=== PATIENT | female | born 1990 | race Caucasian/White ===

== ENCOUNTER 2018-10-06 23:07 | Emergency (ER) | payer SELFPAY ==
--- NOTE | 2018-10-06 23:50 | C.PDOC ---
History Of Present Illness 28 year old female , , 12 weeks presents to the ED c/o severe headache, neck pain that started today at 16:00 while at home watching TV. Patient reports her headache is frontal and occipital radiating into her neck. Patient states she had previous headaches in the past but this one feels worse. Patient's LMP was on 06/23/18. Patient denies fever, chills, nausea, vomit, CP, SOB, abdominal pain, vaginal bleeding, vaginal discharge, rash, weakness, numbness, injury, fall, trauma. Time Seen by Provider: 10/06/18 23:50 Chief Complaint (Nursing): Headache History Per: Patient, Family History/Exam Limitations: no limitations Onset/Duration Of Symptoms: Hrs (16:00) Current Symptoms Are (Timing): Still Present Quality: "Pain" Associated Symptoms: denies: Photophobia, Blurred Vision, Extremity Weakness Recent travel outside of the [place]: No Additional History Per: Patient Past Medical History Reviewed: Historical Data, Nursing Documentation, Vital Signs Vital Signs: Last Vital Signs Temp 98.5 F 10/06/18 23:33 Pulse 116 H 10/06/18 23:33 Resp 22 10/06/18 23:33 BP 134/87 10/06/18 23:33 Pulse Ox 96 10/06/18 23:33 - Medical History PMH: No Chronic Diseases Surgical History: No Surg Hx Family History: States: Unknown Family Hx - Social History Hx Tobacco Use: No Hx Alcohol Use: No Hx Substance Use: No - Immunization History Hx Tetanus Toxoid Vaccination: No Hx Influenza Vaccination: No Hx Pneumococcal Vaccination: No Review Of Systems Constitutional: Negative for: Fever, Chills Eyes: Negative for: Vision Change Cardiovascular: Negative for: Chest Pain, Palpitations Respiratory: Negative for: Cough, Shortness of Breath Gastrointestinal: Negative for: Nausea, Vomiting, Abdominal Pain Musculoskeletal: Positive for: Neck Pain Skin: Negative for: Rash Neurological: Positive for: Headache. Negative for: Weakness, Numbness Physical Exam - Physical Exam Appears: Non-toxic, In Acute Distress Skin: Normal Color, Warm, Dry Head: Atraumatic, Normacephalic Eye(s): bilateral: Normal Inspection, PERRL, EOMI Oral Mucosa: Moist Neck: Normal ROM, No Midline Cervical Tenderness, Supple Chest: Symmetrical Cardiovascular: Rhythm Regular Respiratory: Normal Breath Sounds, No Rales, No Rhonchi, No Wheezing Gastrointestinal/Abdominal: Soft, No Tenderness, No Guarding, No Rebound Back: No CVA Tenderness Extremity: Normal ROM, No Tenderness, No Swelling Neurological/Psych: Oriented x3, Normal Speech, Normal Cognition, Normal Motor, Normal Sensation Gait: Steady ED Course And Treatment - Laboratory Results Result Diagrams: 10/07/18 00:14 10/07/18 00:14 ECG: Interpreted By Me, Viewed By Me ECG Rhythm: Sinus Rhythm Interpretation Of ECst degree AV block Rate From EC (BPM) O2 Sat by Pulse Oximetry: 96 (ON RA) Pulse Ox Interpretation: Normal - CT Scan/US CT head Other Rad Studies (CT/US): Read By Radiologist, Radiology Report Reviewed CT/US Interpretation: EXAM: CT Head without Intravenous Contrast. CLINICAL HISTORY: RT FACIAL DROOP PT , WE SHIELDED HER. TECHNIQUE: Axial computed tomography images of the head/brain without intravenous contrast. 0.00 mGy-cm. COMPARISON: None provided. FINDINGS: BRAIN. No acute intraparenchymal hemorrhage. No mass lesion. No CT evidence for acute territorial infarct. No midline shift or extra-axial collections. VENTRICLES: No hydrocephalus. ORBITS: The orbits are unremarkable. SINUSES AND MASTOIDS: The mastoid air cells are clear. Left ethmoid and maxillary sinusitis. BONES: No fracture. SOFT TISSUES: Unremarkable. IMPRESSION: No acute intracranial abnormality. . Electronically signed on Oct 07, 2018 12:27:12 AM EST by: Homero Moreno M.D., MBA Certified By ABR & CBCCT. Fellowship Trained MRI and CT Specialist. . Communicated to Dr. Sanchez 12:29am EST. Addendum electronically signed by Homero Moreno M.D., LIBIA Certified By ABR & CBCCT on October 07, 2018 12:31:24 AM EST NIHSS Stroke Scale - Date/Time Evaluation Performed Date Performed: 10/07/18 Time Performed: 23:30 When Was NIHSS Performed: Baseline - How Severe is the Stoke Level of Consciousness: 0=Alert LOC to Questions: 0=Both comments correct LOC to commands: 0=Obeys both correctly Best Gaze: 0=Normal Visual: 0=No visual loss Facial: 0=Normal Motor Arm - Left: 0=No drift Motor Arm - Right: 0=No drift Motor Leg - Left: 0=No drift Motor Leg - Right: 0=No drift Limb Ataxia: 0=Absent Sensory: 0=Normal Best Language: 0=No aphasia Dysarthia: 0=Normal articulation Extinction & Inattention (Neglect): 0=Normal, no object Score: 0 Progress - Re-Evaluation Re-evaluation Note: 10/07/18 02:39 PAIN RESOLVED, NEURO INTACT VSS. - Data Reviewed Data Reviewed: Lab, Diagnostic imaging, Old records rTPA Inclusion/Exclusion - Refusal of Treatment Patient Refused Treatment: No - Inclusion Criteria for Altepase Patient is 18 years or Older: Yes The Clinical Diagnosis of Ischemic Stroke That is Causing a Potentially Disabling Neurological Deficit: No Time of Onset is Well Established to be Less Than 270 Minute Before Treatment Would Begin: No Risk/Benefit Discussed With Patient/Family Member Present: Yes - Exclusion Criteria for Altepase Uncontrolled Hypertension at Time of Treatment (Systolic BP above 185 or Diastolic BP above 110 mmHg): No Active Internal Bleeding: No Known Bleeding Diathesis Including but Not Limited to: Platelets Below 100,000/mm,PTT Above 40 sec After Heparin Use, Current Use of Oral Anitcoagulant With INR Greater Than 1.7 or PT Greater Than 15 secs: No Evidence of an Intracranial Hemorrhage: No Evidence of Major Acute Infarct With Signs Greater Than 1/3 MCA Territory: No Suspicion of Subarachnoid Hemorrhage on Pretreatment Evaluation Even if CT Head Negative For Hemorrhage: No - Warning to TPA With Conditions Following Conditions Weighed Against Anticipated Benefit: No Condition: Stroke Serevity Too Mild, Medical Decision Making Medical Decision Making: Plan: * CT head * Labs * Decadron 8 mg IVP * Mag sulfate IV * Reglan 10 mg IVP * IV fluids * Tylenol 650 mg PO * UA Patient voices understanding of risks and benefits of CT study, and mother at bedside all understand and agree with plan. Disposition Counseled Patient/Family Regarding: Studies Performed, Diagnosis, Need For Followup, Rx Given - Disposition Referrals: YOUR,PMD [Other] Disposition: HOME/ ROUTINE Disposition Time: 02:39 Condition: IMPROVED Prescriptions: Acetaminophen [Tylenol 325mg tab] 650 mg PO Q6 #30 tab Metoclopramide [Reglan] 1 tab PO TID PRN #25 tab PRN Reason: Nausea/Vomiting Instructions: Generalized Neck Pain (DC), Headache, Adult (DC) Forms: J. Hilburn (Lao) Print Language: ICELANDIC - Clinical Impression Clinical Impression: Headache, Neck pain, - Scribe Statement The provider has reviewed the documentation as recorded by the Scribe Danyel Mason All medical record entries made by the Scribe were at my direction and personally dictated by me. I have reviewed the chart and agree that the record accurately reflects my personal performance of the history, physical exam, medical decision making, and the department course for this patient. I have also personally directed, reviewed, and agree with the discharge instructions and dis position.
[2018-10-06] MEDS ORDERED: Magnesium Sulfate 1 gm in D5W 1 GM/100 ML BAG IV ONE (23:51)
[2018-10-06] MEDS ORDERED: Dexamethasone 4 mg/1 ml IVP STA (23:51)
[2018-10-06] MEDS ORDERED: Sodium Chloride 0.9% 1,000 ML IV ONE (23:51)
[2018-10-07 00:18] LABS: BASO # 0.1 K/uL (0.0-0.2); BASO % 0.7 % (0.0-2.0); EOS # 0.4 K/uL (0.0-0.7); EOS % 2.4 % (0.0-4.0); HEMOGLOBIN 13.2 g/dL (11.0-16.0); LYMPH # 6.3 K/uL (1.0-4.3); LYMPH % 39.2 % (20.0-40.0); MEAN CELL VOLUME 93.2 fL (81.0-99.0); MEAN CORPUSCULAR HGB CONC 34.3 g/dL (33.0-37.0); MEAN PLATELET VOLUME 8.4 fL (7.2-11.7); MONO # 1.1 K/uL (0.0-0.8); MONO % 6.7 % (0.0-10.0); NEUT # 8.2 K/uL (1.8-7.0); NRBC % 0.1 % (0.0-2.0); RBC 4.11 Mil/uL (3.80-5.20); RED CELL DISTRIBUTION WIDTH 13.7 % (11.5-14.5)
[2018-10-07] MEDS ORDERED: Dexamethasone 4 mg/1 ml ONE (00:20)
[2018-10-07] MEDS ORDERED: Magnesium Sulfate 1 gm in D5W 1 GM/100 ML BAG IVPB ONE (00:21)
[2018-10-07] MEDS ORDERED: Sodium Chloride 0.9% 1,000 ML ONE (00:21)
[2018-10-07 00:30] LABS: ALB/GLOB RATIO 1.3 (1.0-2.1); ALBUMIN 4.1 g/dL (3.5-5.0); ALT/SGPT 18 U/L (9-52); AST/SGOT 15 U/L (14-36); BLOOD UREA NITROGEN 7 mg/dL (7-17); CALCIUM 10.4 mg/dl (8.6-10.4); GFR NON-AFRICAN AMERICAN > 60
[2018-10-07 01:34] LABS: SQUAMOUS EPITHIAL 1 /hpf (0-5); URINE BILIRUBIN NEGATIVE (NEGATIVE); URINE BLOOD NEGATIVE (NEGATIVE); URINE CLARITY Clear (Clear); URINE COLOR Yellow (YELLOW); URINE GLUCOSE (UA) NORMAL (Normal); URINE HYALINE CAST 0-2 /lpf (0-2); URINE LEUKOCYTE ESTERASE NEG Leu/uL (Negative); URINE PROTEIN NEGATIVE (NEGATIVE); URINE UROBILINOGEN NORMAL mg/dL (0.2-1.0)
[2018-10-07 02:52] VITALS: BP 102/75; PULSE 90; RESP 18; TEMP 98.1; O2SAT 100
--- NOTE | 2018-10-07 09:20 | CT ---
Date of service: 10/07/2018 PROCEDURE: CT HEAD WITHOUT CONTRAST. HISTORY: code stroke COMPARISON: None available. TECHNIQUE: Axial computed tomography images were obtained through the head/brain without intravenous contrast. Radiation dose: Total exam DLP = 2152.21 mGy-cm. This CT exam was performed using one or more of the following dose reduction techniques: Automated exposure control, adjustment of the mA and/or kV according to patient size, and/or use of iterative reconstruction technique. FINDINGS: HEMORRHAGE: No intracranial hemorrhage. BRAIN: Marquis-white matter differentiation is preserved. There is no mass, mass effect or abnormal extra-axial fluid collection. There is no territorial infarction. The midline sagittal structures are normal. VENTRICLES: The ventricles are normal in size, shape and configuration. CALVARIUM: There is no calvarial fracture or extracranial soft tissue swelling. PARANASAL SINUSES: Predominantly clear. MASTOID AIR CELLS: Predominantly clear. OTHER FINDINGS: None. IMPRESSION: No acute intracranial abnormality. If there is a persistent focal neurologic deficit and an ongoing clinical concern for acute infarction, an MRI of the brain without intravenous contrast would be a more sensitive modality for evaluation of hyperacute/acute ischemic infarction. A preliminary report was provided by [facility].
--- NOTE | 2018-10-10 14:12 | CARD ---
APPROVED REPORT Date of service: 10/07/2018 EKG Measurement Heart [id number] <Conclusion> Sinus rhythm with 1st degree AV block Otherwise normal ECG
== END 2018-10-07 02:53 | disposition home or self-care (01) ==
LOC: C.ER 23:07
DX: O26.891 Other specified pregnancy related conditions, first trimester (principal); R51 Headache; M54.2 Cervicalgia; Z3A.12 12 weeks gestation of pregnancy
CPT/HCPCS: 70450; 80053; 81001; 82948; 85025; 93005; 96365; 96375; 99285; J1100; J2765; J3475; J7030